=== PATIENT | female | born 1980 | race Caucasian/White ===

== ENCOUNTER 2018-04-02 13:56 | Day surgery (SDC) | payer OTHER ==
[~2018-04-02] VITALS: Ht 160 cm; Wt 78.2 kg
[2018-04-02 14:34] VITALS: Ht 160 cm; Wt 78.2 kg
[2018-04-02] MEDS ORDERED: [UNRECOGNIZED DRUG - REMARK] PO (14:46)
[2018-04-02 15:06] VITALS: BP 105/62; PULSE 77; RESP 24
[2018-04-02] MEDS ORDERED: LIDOCAINE 4% SOLUTION 50 ML BTL ONE (15:10)
[2018-04-02] MEDS ORDERED: FENTAnyl 50 MCG/ML VIAL ONE (16:00)
[2018-04-02] MEDS ORDERED: MIDAZOLAM 1 MG/ML 2 ML INJ ONE ×2 (16:00)
== END 2018-04-02 16:39 | disposition home or self-care (01) ==
LOC: GIL 13:56
PROVIDERS: ATTEND Internal Medicine
DX: K21.0 Gastro-esophageal reflux disease with esophagitis (principal); K22.2 Esophageal obstruction; K44.9 Diaphragmatic hernia without obstruction or gangrene; K29.50 Unspecified chronic gastritis without bleeding
CPT/HCPCS: 43239; 88305; 88312; J2250; J3010; Z7610